=== PATIENT | male | born 1970 | race Hispanic/Latino ===

== ENCOUNTER 2019-04-18 11:58 | Emergency (ER) | payer SELFPAY ==
[2019-04-18] MEDS ORDERED: NORCO 10/325 PO ONE (12:32)
[2019-04-18] MEDS ORDERED: COLCHICINE PO ONE (12:32)
[2019-04-18] MEDS ORDERED: DECADRON IM ONE (12:32)
[2019-04-18] MEDS ORDERED: IBUPROFEN PO ONE (12:32)
[2019-04-18 12:33] VITALS: BP 150/93
--- NOTE | 2019-04-18 12:38 | Emergency Department Report ---
ED Extremity Problem HPI - General Chief complaint: Extremity Problem,Nontraumatic Stated complaint: RT FOOT GOUT/PAIN Source: patient Mode of arrival: Ambulatory Limitations: No Limitations - History of Present Illness Initial comments: 48 y/o male comes in for right great toe pain for 2 days. Has a history of gout and admits that he has been of his medication. MD Complaint: joint swelling, joint paint Onset/Timin -: days(s) Location: right, toe (great) History of Same: Yes (Gout) -: Yes arthralgia Severity scale (0 -10): 9 Quality: burning, stabbing, aching, sharp Consistency: constant Improves with: nothing Worsens with: weight bearing, walking, palpation - Related Data Previous Rx's Medication Instructions Recorded Last Taken Type Colchicine 0.6 mg PO QDAY #30 capsule 04/18/19 Unknown Rx HYDROcodone/APAP 7.5-325 [[place] 1 each PO Q8HR PRN #12 tablet 04/18/19 Unknown Rx 7.5/325] Indomethacin 50 mg PO Q8H #30 capsule 04/18/19 Unknown Rx predniSONE [Deltasone] 40 mg PO QDAY #8 tab 04/18/19 Unknown Rx Allergies Allergy/AdvReac Type Severity Reaction Status Date / Time No Known Allergies Allergy Unverified 04/18/19 12:00 ED Review of Systems ROS: Stated complaint: RT FOOT GOUT/PAIN Other details as noted in HPI Comment: All other systems reviewed and negative ED Past Medical Hx - Past Medical History Previous Medical History?: Yes Additional medical history: Gout, dermatitis - Surgical History Past Surgical History?: No - Social History Smoking Status: Never Smoker Substance Use Type: None - Medications Home Medications: Home Medications Medication Instructions Recorded Confirmed Last Taken Type Colchicine 0.6 mg PO QDAY #30 capsule 04/18/19 Unknown Rx HYDROcodone/APAP 7.5-325 [[place] 1 each PO Q8HR PRN #12 tablet 04/18/19 Unknown Rx 7.5/325] Indomethacin 50 mg PO Q8H #30 capsule 04/18/19 Unknown Rx predniSONE [Deltasone] 40 mg PO QDAY #8 tab 04/18/19 Unknown Rx ED Physical Exam - General Limitations: No Limitations General appearance: alert, in no apparent distress - Head Head exam: Present: atraumatic, normocephalic - Eye Eye exam: Present: normal appearance - ENT ENT exam: Present: mucous membranes moist - Neck Neck exam: Present: normal inspection - Expanded Lower Extremity Exam Right Hip exam: Present: normal inspection Upper Leg exam: Present: normal inspection Knee exam: Present: normal inspection Lower Leg exam: Present: normal inspection Ankle exam: Present: normal inspection Foot/Toe exam: Present: tenderness, swelling, erythema Neuro vascular tendon exam: Present: no vascular compromise Gait: Positive: observed and limited by pain - Back Exam Back exam: Present: normal inspection - Neurological Exam Neurological exam: Present: alert, oriented X3 - Psychiatric Psychiatric exam: Present: normal affect, normal mood - Skin Skin exam: Present: warm, dry, intact, normal color. Absent: rash ED Course Vital Signs 04/18/19 12:31 Temperature 98.4 F Pulse Rate 76 Respiratory 16 Rate Blood Pressure 150/93 O2 Sat by Pulse 98 Oximetry ED Medical Decision Making - Medical Decision Making 48 y/o male comes in for right great toe pain. Will treat patient for acute gout flare up with colchicine, ibuprofen, Dexamethasone norco. Patient will be discharge on Prednisone 40mg daily for 5 days, colchinice, indocin and nroco. Critical care attestation.: If time is entered above; I have spent that time in minutes in the direct care of this critically ill patient, excluding procedure time. ED Disposition Clinical Impression: Gout attack Qualifiers: Gout site: toe Gout etiology: unspecified cause Laterality: right Qualified Code(s): M10.9 - Gout, unspecified Disposition: DC-01 TO HOME OR SELFCARE Is pt being admited?: No Does the pt Need Aspirin: No Condition: Stable Instructions: Acute Gouty Arthritis (ED) Additional Instructions: Take meds as prescribed. Prescriptions: Colchicine 0.6 mg PO QDAY #30 capsule predniSONE [Deltasone] 40 mg PO QDAY #8 tab Indomethacin 50 mg PO Q8H #30 capsule HYDROcodone/APAP 7.5-325 [[place] 7.5/325] 1 each PO Q8HR PRN #12 tablet PRN Reason: Pain
== END 2019-04-18 14:24 | disposition home or self-care (01) ==
LOC: ED 11:58
DX: M10.9 Gout, unspecified (principal); Z79.899 Other long term (current) drug therapy
CPT/HCPCS: 96372; 99282; J1100